=== PATIENT | male | born 1955 | race Caucasian/White ===

== ENCOUNTER → 2024-11-29 | Outpatient (CLI) | payer MEDICARE, BC, SELFPAY ==
[2024-11-29 09:32] LABS: Hematocrit 45.8 % (41.0-53.0); Hemoglobin 15.5 g/dL (13.5-16.0)
[2024-11-29 09:38] LABS: Glucose Estimated Average 103 mg/dL (80-131); Hemoglobin A1C 5.2 % Hgb (4.8-6.0)
[2024-11-29 09:50] LABS: Alanine Aminotransferase 31 U/L (10-49); Albumin, Serum 4.4 gm/dL (3.4-4.8); Albumin/Globulin Ratio 2.6 (1.2-2.2); Alkaline Phosphatase 64 U/L (46-116); Anion Gap 9 (7-16); Aspartate Amino Transferase 28 U/L (0-34); BUN/Creatinine Ratio 13 Ratio (12-20); Bilirubin,Total 0.9 mg/dL (0.3-1.2); Blood Urea Nitrogen 17 mg/dL (9-23); Calcium 8.9 mg/dL (8.3-10.6); Calcium (Corrected) 8.9 mg/dL (8.5-10.1); Carbon Dioxide 29.5 mMol/L (20.0-31.0); Cardiac Risk Estimate 3.1 RATIO (4.0-6.7); Chloride 104 mMol/L (98-107); Cholesterol 132 mg/dL (132-200); Creatinine (Component) 1.3 mg/dL (0.6-1.3); Free T3 3.5 pg/mL (2.3-4.2); Free T4 (Free Thyroxine) 1.17 ng/dL (0.89-1.76); Globulin 1.7 gm/dL (2.3-3.5); Glucose 93 mg/dL (74-106); HDL Cholesterol 43 mg/dL (40-60); LDL Cholesterol,Calculated 73 mg/dL (0-130); Magnesium 1.8 mg/dL (1.6-2.6); Osmolality,Calculated 284 (275-295); Potassium 3.8 mMol/L (3.4-5.1); Sodium 142 mMol/L (136-145); Thyroid Stimulating Hormone 0.98 uIU/mL (0.55-4.78); Total Protein 6.1 gm/dL (5.7-8.2); Triglycerides 80 mg/dL (30-150); eGFR 60 See Note
[2024-11-29 09:51] LABS: Prostate Specific Antigen 2.83 ng/mL (0-4.00)
[2024-11-29 09:58] LABS: Folate > 24.00 ng/mL (>5.38); Vitamin B12 > 2000 pg/mL (211-911); Vitamin D 25 Hydroxy Total 89.8 ng/mL (7.3-40.2)
== END | disposition home or self-care (01) ==
LOC: COPL 08:18
PROVIDERS: PCP Family Medicine; Referring Provider Family Medicine; Visit Provider Family Medicine
DX: R53.83 Other fatigue (principal); E29.1 Testicular hypofunction; Z79.899 Other long term (current) drug therapy
CPT/HCPCS: 36415; 80053; 80061; 82306; 82607; 82627; 82670; 82746; 83036; 83525; 83721; 83735; 84153; 84402; 84403; 84439; 84443; 84481; 85014; 85018; 86141

== ENCOUNTER → 2025-06-13 | Outpatient (CLI) | payer MEDICARE, BC, SELFPAY ==
[2025-06-13 10:56] LABS: Misc Send Out* See Sep Rpt
[2025-06-13 12:14] LABS: Hematocrit 37.3 % (41.0-53.0); Hemoglobin 12.3 g/dL (13.5-16.0)
[2025-06-13 12:24] LABS: Prostate Specific Antigen 2.42 ng/mL (0-4.00)
[2025-06-13 12:33] LABS: Alanine Aminotransferase 27 U/L (10-49); Albumin, Serum 4.7 gm/dL (3.4-4.8); Albumin/Globulin Ratio 3.9 (1.2-2.2); Alkaline Phosphatase 68 U/L (46-116); Anion Gap 12 (7-16); Aspartate Amino Transferase 27 U/L (0-34); BUN/Creatinine Ratio 12 Ratio (12-20); Bilirubin,Total 0.6 mg/dL (0.3-1.2); Blood Urea Nitrogen 15 mg/dL (9-23); Calcium 9.7 mg/dL (8.3-10.6); Calcium (Corrected) 9.7 mg/dL (8.5-10.1); Carbon Dioxide 28.0 mMol/L (20.0-31.0); Cardiac Risk Estimate 1.9 RATIO (4.0-6.7); Chloride 104 mMol/L (98-107); Cholesterol 105 mg/dL (132-200); Creatinine (Component) 1.3 mg/dL (0.6-1.3); Free T3 3.0 pg/mL (2.3-4.2); Free T4 (Free Thyroxine) 1.14 ng/dL (0.89-1.76); Globulin 1.2 gm/dL (2.3-3.5); Glucose 92 mg/dL (74-106); HDL Cholesterol 55 mg/dL (40-60); LDL Cholesterol,Calculated 40 mg/dL (0-130); Osmolality,Calculated 287 (275-295); Potassium 3.8 mMol/L (3.4-5.1); Sodium 144 mMol/L (136-145); Thyroid Stimulating Hormone 0.52 uIU/mL (0.55-4.78); Total Protein 5.9 gm/dL (5.7-8.2); Triglycerides 52 mg/dL (30-150); eGFR 60 See Note
[2025-06-13 12:34] LABS: Folate > 24.00 ng/mL (>5.38); Vitamin B12 870 pg/mL (211-911); Vitamin D 25 Hydroxy Total 61.3 ng/mL (7.3-40.2)
[2025-06-19 06:57] LABS: DHEA Sulfate* 62 mcg/dL (24-244); Direct LDL* 48 mg/dL (<100); Estradiol, Ultrasensitive* 30 pg/mL (< OR = 29); Insulin* 5.3 uIU/mL (< OR = 18.4); Testosterone, Free,Dialysis 128.9 pg/mL (35.0-155.0); Testosterone, Total, Dialysis 1157 ng/dL (250-1100); hs-CRP* 0.3 mg/L
== END | disposition home or self-care (01) ==
LOC: COPL 10:28
PROVIDERS: PCP Family Medicine; Referring Provider Family Medicine; Visit Provider Family Medicine
DX: R53.83 Other fatigue (principal); R86.1 Abnormal level of hormones in specimens from male genital organs; Z79.890 Hormone replacement therapy; E29.1 Testicular hypofunction
CPT/HCPCS: 36415; 80053; 80061; 82306; 82607; 82627; 82670; 82746; 83525; 83721; 84140; 84153; 84402; 84403; 84439; 84443; 84481; 85014; 85018; 86141